=== PATIENT | female | born 1955 | race Caucasian/White ===

== ENCOUNTER → 2016-05-08 | Outpatient (CLI) | payer OTHER ==
[~2016-05-08] MED LIST: ASPIRIN EC81 M1 PO; AUGMENTIN 875875 MG PO; COMBIVENT INH; COZAAR100 MG PO; DARVOCET-N 1001 EACH PO; IBUPROFEN 600600 M1 PO; MECLIZINE 25 MG25 M1 PO; NAPROSYN375 MG PO; NAPROXEN 500MG500 MG PO; PREVACID DIS; XOPENEX HF1 UDINHALE IH; XOPENEX1.25 MG/3 IH
== END ==
LOC: ULTRA 00:56
DX: K57.30 Diverticulosis of large intestine without perforation or abscess without bleeding (principal); N80.9 Endometriosis, unspecified; K76.0 Fatty (change of) liver, not elsewhere classified; M79.89 Other specified soft tissue disorders; M79.604 Pain in right leg; M79.605 Pain in left leg; R10.9 Unspecified abdominal pain; R10.2 Pelvic and perineal pain

== ENCOUNTER → 2017-03-06 | Outpatient (CLI) | payer OTHER | LOC: CAT 07:43 | DX: E04.1 Nontoxic single thyroid nodule (principal); M54.2 Cervicalgia ==

== ENCOUNTER → 2017-03-06 | Outpatient (CLI) | payer OTHER | LOC: RAD 16:29 | DX: M47.894 Other spondylosis, thoracic region (principal) ==

== ENCOUNTER → 2017-05-18 | Outpatient (CLI) | payer OTHER | LOC: RAD 16:45 | DX: R05 Cough (principal) ==

== ENCOUNTER → 2018-06-24 | Outpatient (CLI) | payer OTHER | LOC: ULTRA 15:16 | DX: E04.2 Nontoxic multinodular goiter (principal); M79.89 Other specified soft tissue disorders; R60.1 Generalized edema; M79.605 Pain in left leg ==

== ENCOUNTER 2018-07-19 15:51 | Emergency (ER) | payer OTHER ==
[~2018-07-19] VITALS: Ht 165.1 cm; Wt 100.7 kg
[2018-07-19 17:12] LABS: ABSOLUTE NEUTROPHILS 4.2 thou/uL (1.4-8.2); BASOPHILS 1.3 % (0.0-2.0); EOSINOPHILS 3.2 % (0.0-3.0); HEMATOCRIT 41.6 % (37.0-47.0); HEMOGLOBIN 14.3 gm/dL (12.0-15.0); LYMPHOCYTES 20.4 % (24.0-44.0); MCH 30.6 pg (26.0-34.0); MCHC 34.3 g/dL (28.0-37.0); MCV 89.2 fL (80.0-100.0); MONOCYTES 7.3 % (1.0-8.0); PLATELET COUNT 216 thou/uL (150-400); POLYS 67.8 % (36.0-66.0); RBC 4.66 mil/uL (4.20-5.00); RDW 14.3 % (10.5-14.5); WBC 6.2 thou/uL (4.0-11.0)
[2018-07-19 17:23] LABS: CALCIUM 9.4 mg/dL (8.5-10.1); POTASSIUM 4.2 mmol/L (3.5-5.1)
[2018-07-19] MEDS ORDERED: NAPROSYN500 MG PO (21:47)
[2018-07-19 21:48] VITALS: BP 155/91
--- NOTE | 2018-07-21 13:22 | EKG ---
[address] [place] [address] ELECTROCARDIOGRAM REPORT Name: WANG OLMSTEAD Room [facility] [id number] ������������������ Admission: 07/19/18 ������������������ Attend Phys: Discharge: 07/19/18 ������������������ Date of : 59 Report #: [id number] ����������������������������������������������������������������� [id number] THIS REPORT FOR: //name// [facility] ED Test Date: 2018-07-19 Test Time: 16:37:27 Pat Name: WANG OLMSTEAD Department: Room: Gender: F [employer]olding Supervisor: ALANA : 1955 Requested By: Marcus Guillen Order Number: [id number] MD: Donald Chapman Measurements Intervals Dana Rate: 82 P: 54 [place]: 130 QRS: 56 QRSD: 92 T: 36 QT: 353 QTc: 413 Interpretive Statements Sinus rhythm Ventricular premature complex Compared to ECG 07/27/2008 17:26:19 Ventricular premature complex(es) now present Sinus tachycardia no longer present Electronically Signed On 07-21-2018 13:22:02 CDT by Donald Chapman [email or web address] ��������������������������������������������� <ELECTRONICALLY SIGNED> ���������������������������������������� By: Donald Chapman MD, [facility] ��������������������������������������������� 07/21/18 1322 [id number] Donald Chapman MD, [facility] /EPI
== END 2018-07-19 21:40 | disposition home or self-care (01) ==
LOC: ER 15:51
PROVIDERS: Emergency Medicine
DX: M54.2 Cervicalgia (principal); R07.89 Other chest pain; R10.12 Left upper quadrant pain; N80.9 Endometriosis, unspecified; J45.909 Unspecified asthma, uncomplicated; K21.9 Gastro-esophageal reflux disease without esophagitis; I10 Essential (primary) hypertension; Z90.49 Acquired absence of other specified parts of digestive tract; Z86.718 Personal history of other venous thrombosis and embolism; Z88.6 Allergy status to analgesic agent; Z91.041 Radiographic dye allergy status; Z88.0 Allergy status to penicillin; Z88.8 Allergy status to other drugs, medicaments and biological substances

== ENCOUNTER → 2018-11-04 | Outpatient (CLI) | payer OTHER ==
[~2018-11-04] MED LIST changes: +NAPROSYN500 MG PO
== END ==
LOC: RAD 15:51
DX: J45.909 Unspecified asthma, uncomplicated (principal)

== ENCOUNTER → 2019-01-30 | Outpatient (CLI) | payer OTHER | LOC: RAD 15:34 | DX: M19.012 Primary osteoarthritis, left shoulder (principal); M77.12 Lateral epicondylitis, left elbow; M79.642 Pain in left hand; W19.XXXA Unspecified fall, initial encounter ==